=== PATIENT | male | born 1975 | race Caucasian/White ===

== ENCOUNTER 2018-02-11 13:38 | Outpatient (CLI) | payer OTHER ==
--- NOTE | 2018-02-11 19:04 | MRI ---
CERVICAL SPINE MRI WITH AND WITHOUT CONTRAST: 02/11/18 INDICATION: Relapsing, remitting multiple sclerosis. No prior imaging comparisons are available. FINDINGS: There is no evidence of marrow edema, compression deformity or significant malalignment of the cervic al spinal cord. No intrinsic expansile intramedullary lesions of the cervical spine are evident. No pathologic intramedullary enhancement of the cervical spinal cord. IMPRESSION: There is no obvious demyelinating plaque or evidence of active demyelination involving the cervical s mckenna cord. POS: [facility]
--- NOTE | 2018-02-11 19:07 | MRI ---
THORACIC SPINE MRI WITHOUT CONTRAST 02/11/18 INDICATION: Relapsing, remitting multiple sclerosis. FINDINGS: No acute marrow edema, compression deformity or significant subluxation. No evidence of ac [place] disc space process. Thoracic spinal cord reveals no pathologic intramedullary enhancement or obvi ous intrinsic expansile lesion. No high grade central canal stenosis. There is a mild central zone di sc protrusion at T6-7, otherwise there are a few scattered minimal disc bulges. IMPRESSION: No MR evidence of demyelinating lesion or active demyelination of the thoracic spinal cord. POS: [facility]
--- NOTE | 2018-02-11 19:40 | MRI ---
BRAIN MRI WITH AND WITHOUT CONTRAST: 02/11/18 HISTORY: Relapsing, remitting multiple sclerosis. No prior comparison imaging. FINDINGS: There are multiple white matter signal abnormalities of each cerebral hemisphere, predominantly in a periventricular distribution. No pathologic intra-axial enhancement is associated with these findings. No evidence of hemorrhagic s usceptibility intracranially, or evidence of acute territorial infarction, mass effect, or midline sh ift. Ventricular system is borderline in size. Skull base flow voids are patent. IMPRESSION: Findings which are most consistent with multiple sclerosis given the clinical history. There is no en hancement to indicate active demyelination. POS: [facility]
== END 2018-02-11 13:39 | disposition home or self-care (01) ==
LOC: MRI 13:38
PROVIDERS: ATTEND Student in an Organized Health Care Education/Training Program
DX: G35 Multiple sclerosis (principal); H57.13 Ocular pain, bilateral; G37.9 Demyelinating disease of central nervous system, unspecified
CPT/HCPCS: 70553; 72156; 72157

== ENCOUNTER 2018-04-03 07:13 | Day surgery (SDC) | payer OTHER ==
[2018-04-03 07:47] VITALS: BP 115/68; TEMP 97
[2018-04-03 10:41] LABS: Color Of CSF Supernatant COLORLESS (Colorless); Tube # 2; Unspun CSF Color COLORLESS (Colorless)
[2018-04-03 10:57] LABS: CSF, Glucose 62 mg/dl (40-70); CSF, Protein 35 mg/dL (15-40)
[2018-04-03 11:19] LABS: CSF Source CSF; Clarity Clear (Clear); Tube # 4
[2018-04-03 11:20] LABS: WBC/NonHematics Count - Manual 1 /cumm (0-5)
[2018-04-03 11:22] LABS: RBC Count - Manual 0 /cumm (None Seen)
--- NOTE | 2018-04-03 13:25 | RAD ---
FLUOROSOCPIC GUIDED LUMBAR PUNCTURE: HISTORY: History of relapsing multiple sclerosis. TECHNIQUE: Informed consent was obtained. Preprocedure pharmaceutical salesperson images were obtained of the lumbar spine for della nce purposes only. The patient was then placed prone on the fluoroscopic table. A timeout was perfo rmed. A site overlying the right L3-4 interlaminar space was marked. The site was prepped and drape d in the usual sterile fashion. Buffered 1% Lidocaine was administered to the overlying subcutaneous tissue. Under fluoroscopic guidance, a 22-gauge spinal needle was guided down through the right L3- 4 interlaminar space into the thecal sac. There is spontaneous return of normal-appearing CSF fluid. The patient was then placed in the left lateral decubitus position. Opening pressures were then ob tained which measures 21 cm of water. Following this, 19.5 cc of CSF were removed in 4 separate tube s for acquisition of the CSF. The inner stylette was placed. The needle was removed. 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 Spinal alignment is preserve d. No acute osseous abnormality is evident. IMPRESSION: 1. Successful lumbar puncture. 2. Opening pressure of 21 cm of water. POS: [facility]
[2018-04-07 13:15] LABS: VDRL, CSF Non Reactive (Non Rea:<1:1)
== END 2018-04-03 10:20 | disposition home or self-care (01) ==
LOC: RAD 07:13
PROVIDERS: ATTEND Student in an Organized Health Care Education/Training Program
DX: G35 Multiple sclerosis (principal)
CPT/HCPCS: 62270; 82040; 82042; 82164; 82784; 82945; 83916; 84157; 86592; 86694; 86695; 86696; 86788; 86789; 89051